=== PATIENT | male | born 1995 | race Caucasian/White ===

== ENCOUNTER 2017-06-19 21:48 | Emergency (ER) | payer OTHER ==
[~2017-06-19] VITALS: Ht 182.9 cm; Wt 63.5 kg
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
--- NOTE | 2017-06-19 22:21 | NUR ---
wade chavez at bedside to amy arzola.
--- NOTE | 2017-06-19 22:23 | NUR ---
pt transported to radiology for ct facial.
[2017-06-19] MEDS ORDERED: ONDANSETRON HCL/PF 4 MG/2 ML VIAL IM ONE (22:30)
[2017-06-19] MEDS ORDERED: HYDROMORPHONE 1 MG/1 ML DISP.SYRIN IM ONE (22:30)
[2017-06-19] MEDS ORDERED: ONDANSETRON HCL/PF 4 MG/2 ML VIAL ONE (22:37)
[2017-06-19] MEDS ORDERED: HYDROMORPHONE 1 MG/1 ML DISP.SYRIN ONE (22:37)
--- NOTE | 2017-06-19 22:39 | NUR ---
pt back from radiology. pending ct result.
[2017-06-20] MEDS ORDERED: CLINDAMYCIN HCL 150 MG CAPSULE PO ONE ×2 (00:04)
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
[2017-06-20 00:11] VITALS: BP 127/63
== END 2017-06-20 00:11 | disposition home or self-care (01) ==
LOC: ER 21:53
DX: S02.609A Fracture of mandible, unspecified, initial encounter for closed fracture (principal); W51.XXXA Accidental striking against or bumped into by another person, initial encounter; Y93.83 Activity, rough housing and horseplay; Y92.89 Other specified places as the place of occurrence of the external cause; Y99.8 Other external cause status
CPT/HCPCS: 70486; 96372 ×2; 99284; A4606; J1170; J2405; Z7610